=== PATIENT | male | born 1945 | race Caucasian/White ===

== ENCOUNTER 2023-04-09 12:20 | Emergency (ER) | payer MEDICARE, OTHER ==
[~2023-04-09] VITALS: Ht 172.7 cm; Wt 89.8 kg
[2023-04-09 12:27] VITALS: O2SAT 100
[2023-04-09] MEDS ORDERED: ACETAMINOPHEN/CODEINE 300-30 MG TABLET PO ONE (13:00)
[2023-04-09] MEDS ORDERED: ACETAMINOPHEN/CODEINE 300-30 MG TABLET ONE (13:08)
[2023-04-09] MEDS ORDERED: ACET1TAB23 PO (13:44)
== END 2023-04-09 14:51 | disposition home or self-care (01) ==
LOC: ER 12:20
DX: S52.502A Unspecified fracture of the lower end of left radius, initial encounter for closed fracture (principal); Z79.899 Other long term (current) drug therapy; W18.39XA Other fall on same level, initial encounter; Y93.89 Activity, other specified; Y92.89 Other specified places as the place of occurrence of the external cause; Y99.8 Other external cause status
CPT/HCPCS: 73110; A4663